=== PATIENT | male | born 1945 | race Caucasian/White ===

== ENCOUNTER 2017-01-30 15:05 | Emergency (ER) | payer OTHER ==
[~2017-01-30] VITALS: Ht 182.9 cm; Wt 136.4 kg
[~2017-01-30 15:05] MED LIST: ALBU2.5V4 INHALATION; ALBU8.5H2 INHALATION; AMLO5TAB2 PO; AMMO120C3 TP; ASCO100089 PO; ATOR20TA PO; BUPR75TA10 PO; CHOL400T3 PO; CHON250C PO; FLUT16SP NS; FURO40TA4 PO; GABA-502 PO; GLUC100016 PO; GUAI473S22 PO; INSU100C8 SUBQ; INSU100V7 SUBQ; LISI40TA PO; METF500T4 PO; METH750T3 PO; OMEP20CA11 PO; PROP40TA5 PO; RANI150C4 PO; TAMS0.4C29 PO; TRAZ-115 PO
[2017-01-30 15:41] VITALS: BP 150/81; PULSE 66; RESP 16; O2SAT 92
--- NOTE | 2017-01-30 16:20 | ED.REPORT ---
HPI-Neck Pain Free Text HPI Notes Jan 30, 2017 ED Provider: Vamsi Miller MD The patient is a 71 year old male who presents to the emergency department complaining of neck pain that began a few days ago. He feels like his neck is "locked up." and he has also noticed spasms. He was seen by his PCP 2 days ago who prescribed Flexeril. He is still waiting to get this medication from the [place]. He had a horrible night of sleep last night due to pain and this continued this morning. He has experienced similar symptoms in his lower back. He denies any known injury or trauma. He denies numbness, weakness, problem walking, bladder/bowel incontinence, headache, fever, chills, nausea or vomiting. He mentions chronic shortness of breath that is unchanged. Nursing Notes Stated Complaint: HEAD / NECK SPASM Chief Complaint: Head, Face, Neck Trauma Nursing Notes Reviewed: Yes Allergies: Coded Allergies: No Known Allergies (Verified Allergy, Mild, 01/30/17) Scheduled Albuterol HFA (Proair HFA) 8.5 Gm Hfa.aer.ad 2 PUFFS INHALATION Q4H Amlodipine (Amlodipine) 5 Mg Tablet 5 MG PO DAILY Ascorbic Acid (Vitamin C) 1,000 Mg Tab.chew 1,000 MG PO DAILY Atorvastatin (Lipitor) 20 Mg Tablet 20 MG PO DAILY Bupropion (Bupropion) 75 Mg Tablet 75 MG PO BID Cholecalciferol (Vitamin D3) (Vitamin D3) 400 Unit Tab.chew Unknown Dose PO DAILY Chondroitin Sulfate A (Chondroitin Sulfate) 250 Mg Capsule 1,200 MG PO DAILY Fluticasone Propionate (Fluticasone Propionate Nasal) 16 Gm [place].susp 1 SPRAY NS BID Furosemide (Furosemide) 40 Mg Tablet 40 MG PO DAILY Gabapentin (Gabapentin) 300 Mg Capsule 300 MG PO TID Glucosamine Sulfate 2Kcl (Glucosamine) 1,000 Mg Tablet 1,500 MG PO DAILY Insulin Aspart (NovoLOG U100 Insulin Vial) 100 U/Ml U 17-20 UNIT SUBQ per insulin protocol Insulin Glargine (Lantus U100 Insulin Vial) 100 Unit/Ml Vial 45 UNIT SUBQ per insulin protocol Lisinopril (Lisinopril) 40 Mg Tablet 40 MG PO DAILY Metformin (Metformin) 500 Mg Tablet 1,000 MG PO DAILY Omeprazole (Omeprazole) 20 Mg Capsule.dr 20 MG PO BID Propranolol HCl (Propranolol HCl) 40 Mg Tablet 40 MG PO BID Ranitidine (Ranitidine) 150 Mg Capsule 150 MG PO DAILY Tamsulosin ER (Tamsulosin ER) 0.4 Mg Cap.er.24h 0.4 MG PO DAILY Trazodone (Trazodone) 50 Mg Tablet 50 MG PO HS Scheduled PRN Albuterol Neb Soln (Albuterol Neb Soln) 2.5 Mg/3 Ml Vial.neb 2.5 MG INHALATION Q4H PRN PRN For Shortness of Breath Cyclobenzaprine (Cyclobenzaprine) 5 Mg Tablet 5 MG PO HS PRN PRN Spasm Methocarbamol (Methocarbamol) 750 Mg Tablet 750 MG PO QID PRN PRN For Spasm Miscellaneous Medications Ammonium Lactate/Emu Oil (Emu-Lac Hydrating Cream) 120 Ml Cream.ml. 120 ML TP Guaifenesin/Codeine Phosphate (Guaifenesin AC Cough Syrup) 473 Ml Liquid 473 ML PO General Time Seen by Provider: 16:32 Chief Complaint Neck pain Hx Obtained From: Patient Arrived By: Walk-in Sudden in Onset?: No Onset Occurred: 4 days ago Symptom Duration: Since onset Progression Since Onset: Constant Quality: Painful Severity: Current: Moderate Severity: Maximum: Moderate Pertinent Negative: Pt denies other symptoms Recent Healthcare: No recent hospitalization, Recent doctor visit Similar Sx Previous: No Past Medical History Family History Noncontributory Smoking History Former Smoker Social History Other Social History: Good social support, , Local resident Ambulatory Status Independent Review of Systems Constitutional: Denies: Chills, Fever Respiratory: Reports: Shortness of breath (chronic) Cardiovascular: Denies: Chest pain GI: Denies: Nausea, Vomiting Musculoskeletal: Reports: Neck pain Neurologic: Denies: Bladder dysfunction, Bowel dysfunction, Focal weakness, Headache, Numbness, Problem walking Complete sys rev & neg: except as marked. Physical Exam Initial Vital Signs Vital Signs (First) Date Time Temp Pulse Resp B/P Pulse Ox O2 Delivery O2 Flow Rate FiO2 01/30/17 15:41 36.7 66 16 150/81 92 Room Air Initial VS: Reviewed Head / Eyes: Atraumatic, Normocephalic, PERRL ENT: Mucous membranes moist, Conjunctiva normal, No scleral icterus Respiratory: Breath sounds normal, Clear to auscultation, No respiratory distress Cardiovascular: Regular rate & rhythm, Heart sounds normal, Intact distal pulses Abdomen / GI: Soft, Non-tender, No guarding, No rebound, No distention Lymphatic: No lymphadenopathy Extremities: Vascular intact, Neuro intact, No swelling, No tenderness Skin: Warm, Dry, No cyanosis Psychiatric: Mood/affect normal, Behavior normal, Normal thought content General/Constitutional: Awake, Alert Neck: No midline vertebral tend Tenderness in the distribution of the trapezius muscles bilaterally. No deformity. No midline c-spine tenderness. He is able to touch chin to chest but has limited rotation, both rightward and leftward. Neurovascular intact. Neurologic: Oriented X3, Speech NL, No motor deficits, No sensory deficits, Reflexes equal bilat Re-Eval/Medical Decision Med Decision/Clinical Course The patient is a 71 year old male who presents to the emergency department complaining of neck pain that began a few days ago. He feels like his neck is "locked up." and he has also noticed spasms. He was seen by his PCP 2 days ago who prescribed Flexeril. He is still waiting to get this medication from the [place]. He had a horrible night of sleep last night due to pain and this continued this morning. He requests medication to help with his muscle spasm. Here in the emergency Department he is afebrile with stable vital signs and no meningismus. Examination reveals tenderness about the distribution of the trapezius muscles bilaterally. No evidence of infection, no evidence of abscess or cellulitis, no evidence of neurovascular deficits. He received 5 mg of oral Flexeril and reported significant subjective improvement. I have advised ice packs and hot packs. He will take Tylenol as needed for pain. A limited supply of Flexeril was provided for use at night for breakthrough symptoms. He will follow up closely with his primary care physician. Follow- up and return precautions were reviewed in detail and the patient verbalized understanding and agreement with the plan. Source of Hx: Old records Re-Evaluation/Progress : Time of Eval: 16:47 Re-Evaluation/Progress Note: Discussed plan for discharge. All questions were addressed. Counseled Regarding: Diagnosis, Need for follow-up, When/why to return to ED Discharge & Departure Primary Impression: Neck pain Additional Impression: Trapezius muscle spasm Disposition: Home Discharge Condition All VS Reviewed: Yes Condition: Stable Additional Instructions: Thank you for seeking care at the emergency room. It is difficult for us to make definitive diagnoses in the ED but we believe that you are experiencing pain due to musculoskeletal pain. Our primary goal today in the ED was to evaluate you for any life-threatening conditions. Your evaluation was reassuring. We have written you a prescription for Flexeril. You can also try applying warm and cold packs. You should follow-up with your primary doctor in the next week. You should return to the ED immediately if you develop increased pain, numbness , weakness, fevers, vomiting, or any other concerning signs or symptoms. Thank you for letting us partake in your care today. Referrals: Justice Rubio MD (PCP) ED Scribe Statement Portions of this note were transcribed by Lalita Jacobo. I, Dr. Miller personally performed the history, physical exam and medical decision-making; I reviewed and confirmed the accuracy of the information in the transcribed note. Signed by: Vivian Marmolejo, 01/30/2017 and 1650. copies to: Justice Rubio MD, Beck O MD Jan 30, 2017 16:20 Lalita Jacobo Jan 30, 2017 16:22
[2017-01-30] MEDS ORDERED: CYCL5TAB PO (16:50)
[2017-01-30 17:23] VITALS: BP 143/65; PULSE 66; O2SAT 91
[2017-01-31] MEDS ORDERED: DIAZ10TA PO (01:54)
== END 2017-01-30 17:21 | disposition home or self-care (01) ==
LOC: SED 15:05
DX: M54.2 Cervicalgia (principal); M62.838 Other muscle spasm; R06.02 Shortness of breath; Z87.891 Personal history of nicotine dependence; Z79.4 Long term (current) use of insulin; Z79.84 Long term (current) use of oral hypoglycemic drugs

== ENCOUNTER 2017-01-31 00:01 | Emergency (ER) | payer OTHER ==
[~2017-01-31] VITALS: Ht 182.9 cm; Wt 136.4 kg
[~2017-01-31 00:01] MED LIST changes: +CYCL5TAB PO
[2017-01-31 00:10] VITALS: BP 202/98; PULSE 72; RESP 20; O2SAT 95
[2017-01-31 01:02] VITALS: BP 167/74; PULSE 76; RESP 20; O2SAT 93
--- NOTE | 2017-01-31 01:41 | ED.REPORT ---
HPI-Neck Pain Free Text HPI Notes Jan 31, 2017 ED Provider: Louis Mg MD Pt is a 71 y.o. male who presents to the ED c/o neck pain that began a few days ago. Pt was seen earlier today in the ED and was prescribed Cyclobenzaprine. Upon arriving home pt was unable to get comfortable and states that he experienced no relief from the prescription. He states it feels like his neck is "locked up." and he has also noticed spasms. He was seen by his PCP 2 days ago who prescribed Flexeril. He is still waiting to get this medication from the [place]. He denies any known injury or trauma. He denies numbness, weakness, problem walking, bladder/bowel incontinence, headache, fever, chills, nausea or vomiting. Nursing Notes Stated Complaint: NECK/HEAD PAIN Chief Complaint: General Complaint Nursing Notes Reviewed: Yes Allergies: Coded Allergies: No Known Allergies (Verified Allergy, Mild, 01/31/17) Scheduled Albuterol HFA (Proair HFA) 8.5 Gm Hfa.aer.ad 2 PUFFS INHALATION Q4H Amlodipine (Amlodipine) 5 Mg Tablet 5 MG PO DAILY Ascorbic Acid (Vitamin C) 1,000 Mg Tab.chew 1,000 MG PO DAILY Atorvastatin (Lipitor) 20 Mg Tablet 20 MG PO DAILY Bupropion (Bupropion) 75 Mg Tablet 75 MG PO BID Cholecalciferol (Vitamin D3) (Vitamin D3) 400 Unit Tab.chew Unknown Dose PO DAILY Chondroitin Sulfate A (Chondroitin Sulfate) 250 Mg Capsule 1,200 MG PO DAILY Fluticasone Propionate (Fluticasone Propionate Nasal) 16 Gm [place].susp 1 SPRAY NS BID Furosemide (Furosemide) 40 Mg Tablet 40 MG PO DAILY Gabapentin (Gabapentin) 300 Mg Capsule 300 MG PO TID Glucosamine Sulfate 2Kcl (Glucosamine) 1,000 Mg Tablet 1,500 MG PO DAILY Insulin Aspart (NovoLOG U100 Insulin Vial) 100 U/Ml U 17-20 UNIT SUBQ per insulin protocol Insulin Glargine (Lantus U100 Insulin Vial) 100 Unit/Ml Vial 45 UNIT SUBQ per insulin protocol Lisinopril (Lisinopril) 40 Mg Tablet 40 MG PO DAILY Metformin (Metformin) 500 Mg Tablet 1,000 MG PO DAILY Omeprazole (Omeprazole) 20 Mg Capsule.dr 20 MG PO BID Propranolol HCl (Propranolol HCl) 40 Mg Tablet 40 MG PO BID Ranitidine (Ranitidine) 150 Mg Capsule 150 MG PO DAILY Tamsulosin ER (Tamsulosin ER) 0.4 Mg Cap.er.24h 0.4 MG PO DAILY Trazodone (Trazodone) 50 Mg Tablet 50 MG PO HS Scheduled PRN Albuterol Neb Soln (Albuterol Neb Soln) 2.5 Mg/3 Ml Vial.neb 2.5 MG INHALATION Q4H PRN PRN For Shortness of Breath Cyclobenzaprine (Cyclobenzaprine) 5 Mg Tablet 5 MG PO HS PRN PRN Spasm Diazepam (Valium) 10 Mg Tablet 10 MG PO HS PRN PRN For Spasm Methocarbamol (Methocarbamol) 750 Mg Tablet 750 MG PO QID PRN PRN For Spasm Miscellaneous Medications Ammonium Lactate/Emu Oil (Emu-Lac Hydrating Cream) 120 Ml Cream.ml. 120 ML TP Guaifenesin/Codeine Phosphate (Guaifenesin AC Cough Syrup) 473 Ml Liquid 473 ML PO General Time Seen by Provider: 01:22 Chief Complaint Neck pain Hx Obtained From: Patient Arrived By: Walk-in Sudden in Onset?: Yes Onset Occurred: 2 days ago Symptom Duration: Since onset Quality: Painful Severity: Current: Severe Past Medical History Family History Noncontributory Smoking History Former Smoker Social History Other Social History: Good social support, , Local resident Ambulatory Status Independent Review of Systems Constitutional: Denies: Chills, Fever GI: Denies: Nausea, Vomiting Musculoskeletal: Reports: Neck pain Neurologic: Denies: Bladder dysfunction, Bowel dysfunction, Headache, Numbness , Problem walking, Weakness Complete sys rev & neg: except as marked. Male: Denies Incontinence Physical Exam Initial Vital Signs Vital Signs (First) Date Time Temp Pulse Resp B/P Pulse Ox O2 Delivery O2 Flow Rate FiO2 01/31/17 00:10 37.2 72 20 202/98 95 Room Air Initial VS: Reviewed, Vital signs abnormal Head / Eyes: Atraumatic, Normocephalic Respiratory: Breath sounds normal, No respiratory distress Cardiovascular: Regular rate & rhythm, Intact distal pulses Abdomen / GI: No distention Extremities: Vascular intact, Neuro intact Skin: Warm, Dry, No cyanosis Psychiatric: Mood/affect normal, Behavior normal, Normal thought content General/Constitutional: Awake, Alert, Well hydrated, Not toxic appearing Appearance / Presentation: Positive: Obese, morbidly Neck: Atraumatic, Supple, No midline vertebral tend Neck / Muscle Tenderness: Positive: Trapezius L... Neurologic: Oriented X3, Speech NL, No motor deficits Re-Eval/Medical Decision Med Decision/Clinical Course 71-year-old male who was seen here with left trapezius spasm earlier today. Cyclobenzaprine was not helpful. He is angry and frustrated because he has not been able to sleep. Exam is remarkable for a very tender area at the left superior trapezius musculature and tender spasm throughout the trapezius muscle. He was given a shot of 10 mg of Valium and fitted with a soft collar. He was reluctant to go home without assurance that this would definitely do the trick. In addition he was given a prescription for Valium 10 mg by mouth, #10 and a prepack of oxycodone/acetaminophen 5/325, 1 or 2 every 4-6 hours as needed for severe pain. He will follow-up with his regular doctor for further evaluation and treatment possibly to include an MRI, trigger point injection, etc. Re-Evaluation/Progress : Time of Eval: 01:58 Re-Evaluation/Progress Note: Physical exam performed. Discussed plan for discharge, pt understands and agrees with plan. Discharge & Departure Primary Impression: Trapezius muscle spasm Disposition: Home Discharge Condition All VS Reviewed: Yes Condition: Improved Patient Instructions: Cervical Spine Strain (ED), Neck Strain Exercises (GEN) Additional Instructions: Valium (diazepam) 10 mg IM given in the emergency room, continue 10 mg at bedtime for the next couple of nights as needed for neck spasm. Follow-up with your regular doctor to discuss trigger point injection. Referrals: Justice Rubio MD (PCP) ED Scribe Statement Portions of this note were transcribed by Jos Varela. I, Dr. Mg personally performed the history, physical exam and medical decision-making; I reviewed and confirmed the accuracy of the information in the transcribed note. Signed by: Vivian Tracy, 01/31/17 and 0204. copies to: Justice Rubio MD, Howard L MD Jan 31, 2017 01:41 JOS VARELA Jan 31, 2017 01:46
[2017-01-31] MEDS ORDERED: DIAZ10TA PO (01:54)
[2017-01-31] MEDS ORDERED: _oxyCODONE/APAP 5-325 mg Tablet PO PRN (02:25)
[2017-01-31 02:52] VITALS: BP 184/73; PULSE 78; RESP 20; O2SAT 94
== END 2017-01-31 02:53 | disposition home or self-care (01) ==
LOC: SED 00:01
DX: M62.838 Other muscle spasm (principal); Z87.891 Personal history of nicotine dependence; Z79.84 Long term (current) use of oral hypoglycemic drugs
CPT/HCPCS: 96372; 99283; J3360